=== PATIENT | female | born 1955 | race Two or more races ===

== ENCOUNTER 2018-07-10 06:58 | Day surgery (SDC) | payer OTHER ==
[2018-07-10] MEDS ORDERED: CIPROFLOXACIN 400MG/D5W 200 ML IVPB (08:00)
[2018-07-10] MEDS ORDERED: metroNIDAZOLE 500 MG/NS (PMX) 100 ML IVPB (08:00)
[2018-07-10] MEDS ORDERED: SOD CHLORIDE 0.9% 1,000 ML IV (08:00)
[2018-07-10 08:31] LABS: ADD MAN DIFF? NO
[2018-07-10 08:40] LABS: BASOPHILS % 0.2 % (0.0-2.0); EOSINOPHILS # 0.1 10^3/ul (0.0-0.5); EOSINOPHILS % 1.2 % (0.0-7.0); HEMATOCRIT 37.6 % (37.0-47.0); HEMOGLOBIN 12.4 g/dl (12.0-16.0); LYMPHOCYTES # 0.7 10^3/ul (0.8-2.9); LYMPHOCYTES % 17.1 % (15.0-51.0); MEAN CORPUSCULAR HEMOGLOBIN 30.1 pg (29.0-33.0); MEAN CORPUSCULAR VOLUME 91.3 fl (82.0-101.0); MEAN PLATELET VOLUME 11.1 fl (7.4-10.4); MONOCYTE # 0.4 10^3/ul (0.3-0.9); MONOCYTES % 8.7 % (0.0-11.0); NEUTROPHILS % 72.3 % (39.0-77.0); PLATELET COUNT 102 10^3/UL (140-415); RED BLOOD COUNT 4.12 10^6/ul (4.20-5.40); RED CELL DISTRIBUTION WIDTH 13.2 % (11.5-14.5)
[2018-07-10 08:40] LABS: WHITE BLOOD COUNT 4.2 10^3/ul (4.8-10.8)
[2018-07-10 08:54] LABS: HOLD TRANSMISSIONS 1
== END 2018-07-10 09:28 | disposition home or self-care (01) ==
LOC: REC 06:58 → SDS 06:58
DX: C18.9 Malignant neoplasm of colon, unspecified (principal); Z53.8 Procedure and treatment not carried out for other reasons
CPT/HCPCS: 85025; 86850; 86900; 86901

== ENCOUNTER 2018-07-15 07:10 | Inpatient (IN) | payer OTHER ==
[2018-07-17] MEDS: SOD CHLORIDE 0.9% 1,000 ML IV ×2 (06:00→19:20)
[2018-07-17] MEDS ORDERED: CIPROFLOXACIN 400 MG in D5W 200 ML IVPB (06:00)
[2018-07-17] MEDS: Metronidazole 500 MG in NS 100 ML IVPB (06:00)
[2018-07-17] MEDS ORDERED: ROCURONIUM 50 MG INJ (07:00)
[2018-07-17] MEDS ORDERED: EPHEDrine SULFATE 50 MG/5 ML SYG (07:00)
[2018-07-17] MEDS ORDERED: ETOMIDATE 20 MG INJ (07:00)
[2018-07-17 08:15] LABS: ADD MAN DIFF? NO
[2018-07-17 08:19] LABS: ABNORMAL IP MESSAGE 1; BASOPHILS % 0.2 % (0.0-2.0); EOSINOPHILS % 0.5 % (0.0-7.0); HEMATOCRIT 34.2 % (37.0-47.0); HEMOGLOBIN 11.3 g/dl (12.0-16.0); LYMPHOCYTES # 0.6 10^3/ul (0.8-2.9); LYMPHOCYTES % 9.4 % (15.0-51.0); MEAN CORPUSCULAR VOLUME 90.7 fl (82.0-101.0); MEAN PLATELET VOLUME 11.1 fl (7.4-10.4); MONOCYTE # 0.3 10^3/ul (0.3-0.9); MONOCYTES % 4.3 % (0.0-11.0); NEUTROPHIL # 5.3 10^3/ul (1.6-7.5); NEUTROPHILS % 85.4 % (39.0-77.0); PLATELET COUNT 114 10^3/UL (140-415); RED BLOOD COUNT 3.77 10^6/ul (4.20-5.40)
[2018-07-17 08:19] LABS: WHITE BLOOD COUNT 6.3 10^3/ul (4.8-10.8)
[2018-07-17 08:47] LABS: INR 0.94; PARTIAL THROMBOPLASTIN TIME 32.2 Sec (23.0-35.0); PROTIME 12.7 Sec (11.9-14.9)
[2018-07-17 08:53] LABS: POSITIVE DIFF @See below
[2018-07-17 08:56] LABS: ALANINE AMINOTRANSFERASE 29 IU/L (13-69); ALBUMIN 3.4 g/dl (3.3-4.9); ALBUMIN/GLOBULIN RATIO 1.13; ALKALINE PHOSPHATASE 84 IU/L (42-121); ANION GAP 11 (5-13); ASPARTATE AMINO TRANSFERASE 27 IU/L (15-46); BILIRUBIN,INDIRECT 0.5 mg/dl (0-1.1); BILIRUBIN,TOTAL 0.5 mg/dl (0.2-1.3); BLOOD UREA NITROGEN 18 mg/dl (7-20); CALCIUM 8.9 mg/dl (8.4-10.2); CARBON DIOXIDE 25 mmol/L (21-31); CHLORIDE 106 mmol/L (97-110); CREATININE 0.58 mg/dl (0.44-1.00); GLUCOSE 112 mg/dl (70-220); POTASSIUM 3.9 mmol/L (3.5-5.1); SODIUM 142 mmol/L (135-144); TOTAL PROTEIN 6.4 g/dl (6.1-8.1)
[2018-07-17 09:13] LABS: ANISOCYTOSIS 1+ (0-0); BAND NEUTROPHILS #M 0.8 10^3/ul (0.0-0.6); BAND NEUTROPHILS % (M) 13 % (0-4); LYMPHOCYTES #M 0.6 10^3/ul (0.8-2.9); LYMPHOCYTES % (M) 11 % (15-51); MICROCYTOSIS 1+ (0-0); MONOCYTE #M 0.1 10^3/ul (0.3-0.9); MONOCYTES % (M) 2 % (0-11); PLATELET ESTIMATE DECREASED; POIKILOCYTOSIS 1+ (0-0); REACTIVE LYMPHOCYTES% (M) 1 % (0-0); SEG NEUT #M 4.6 10^3/ul (1.6-7.5); SEGMENTED NEUTROPHILS (M) % 73 % (39-77); SMUDGE%M 1 % (0-0)
[2018-07-17] MEDS: DIPHENHYDRAMINE 50 MG INJ IV (09:19)
[2018-07-17] MEDS ORDERED: morphine SULFATE/PF (10 MG/10 ML) INJ (10:17)
[2018-07-17] MEDS ORDERED: MIDAZOLAM 1 MG/ML 2 ML INJ (10:17)
[2018-07-17 11:22] LABS: POST-TRANSFUSION BILIRUBIN 0.4 mg/dl
[2018-07-17 11:22] LABS: PRETRANSFUSION BILIRUBIN 0.4 mg/dl
[2018-07-17] MEDS ORDERED: LIDOCAINE 2% (SDV) 5 ML INJ (12:06)
[2018-07-17] MEDS ORDERED: PHENYLephrine (100 MCG/ML) 5ML SYG ×3 (12:32→13:16)
[2018-07-17] MEDS ORDERED: DEXAMETHASONE 4 MG/ML 1 ML INJ (13:02)
[2018-07-17] MEDS ORDERED: ONDANSETRON 4 MG INJ (13:02)
[2018-07-17 13:16] LABS: IMMEDIATE SPIN CROSSMATCH 1 4
[2018-07-17] MEDS ORDERED: SUGAMMADEX SODIUM 200 MG/2 ML VIAL IV (14:12)
[2018-07-17] MEDS ORDERED: morphine 1 MG/ML 30 ML (PCA) IV (14:30)
[2018-07-17] MEDS ORDERED: NALOXONE (0.4 MG/ML) INJ IV (15:00)
[2018-07-17] MEDS: ONDANSETRON 4 MG INJ IV (15:02)
[2018-07-17] MEDS ORDERED: METOCLOPRAMIDE 10 MG INJ (15:14)
[2018-07-17] MEDS: FENTAnyl 2MCG/ML-ROPIV 0.2% 100 ML BAG EPI ×2 (15:24→22:27)
[2018-07-17] MEDS: METOCLOPRAMIDE 10 MG INJ IV (18:00)
[2018-07-17] MEDS: D5W-0.45 NACL + KCL 20 MEQ 1,000 ML IV (18:00)
[2018-07-18] MEDS: D5W-0.45 NACL + KCL 20 MEQ 1,000 ML IV ×4 (02:15→21:24)
[2018-07-18 04:57] LABS: ADD MAN DIFF? NO
[2018-07-18 05:13] LABS: WHITE BLOOD COUNT 6.6 10^3/ul (4.8-10.8)
[2018-07-18 05:13] LABS: ABNORMAL IP MESSAGE 1; HEMATOCRIT 27.5 % (37.0-47.0); HEMOGLOBIN 9.2 g/dl (12.0-16.0); LYMPHOCYTES # 0.3 10^3/ul (0.8-2.9); LYMPHOCYTES % 4.5 % (15.0-51.0); MEAN CORPUSCULAR HEMOGLOBIN 29.7 pg (29.0-33.0); MEAN CORPUSCULAR HGB CONC 33.5 g/dl (32.0-37.0); MEAN CORPUSCULAR VOLUME 88.7 fl (82.0-101.0); MONOCYTE # 0.5 10^3/ul (0.3-0.9); MONOCYTES % 6.8 % (0.0-11.0); NEUTROPHIL # 5.9 10^3/ul (1.6-7.5); NEUTROPHILS % 88.5 % (39.0-77.0); PLATELET COUNT 156 10^3/UL (140-415); RED CELL DISTRIBUTION WIDTH 12.8 % (11.5-14.5)
[2018-07-18 05:21] LABS: MAGNESIUM 1.5 mg/dl (1.7-2.5)
[2018-07-18 05:21] LABS: PHOSPHORUS 2.5 mg/dl (2.5-4.9)
[2018-07-18 05:24] LABS: ANION GAP 9 (5-13); BLOOD UREA NITROGEN 13 mg/dl (7-20); CALCIUM 8.4 mg/dl (8.4-10.2); CARBON DIOXIDE 25 mmol/L (21-31); CHLORIDE 104 mmol/L (97-110); CREATININE 0.64 mg/dl (0.44-1.00); GLUCOSE 163 mg/dl (70-220); PHOSPHORUS 2.3 mg/dl (2.5-4.9); POTASSIUM 3.6 mmol/L (3.5-5.1); SODIUM 138 mmol/L (135-144)
[2018-07-18 05:25] LABS: MAGNESIUM 1.4 mg/dl (1.7-2.5)
[2018-07-18 05:32] LABS: POSITIVE DIFF @See below
[2018-07-18] MEDS: PANTOPRAZOLE 40 MG INJ IV (06:11)
[2018-07-18] MEDS: FENTAnyl 2MCG/ML-ROPIV 0.2% 100 ML BAG EPI ×2 (07:40→18:00)
[2018-07-18 10:40] LABS: ADD MAN DIFF? NO
[2018-07-18 10:42] LABS: BASOPHILS % 0.1 % (0.0-2.0); EOSINOPHILS % 0.1 % (0.0-7.0); HEMATOCRIT 32.5 % (37.0-47.0); HEMOGLOBIN 10.7 g/dl (12.0-16.0); LYMPHOCYTES # 0.7 10^3/ul (0.8-2.9); LYMPHOCYTES % 8.4 % (15.0-51.0); MEAN CORPUSCULAR HGB CONC 32.9 g/dl (32.0-37.0); MEAN PLATELET VOLUME 11.2 fl (7.4-10.4); MONOCYTE # 0.4 10^3/ul (0.3-0.9); MONOCYTES % 5.4 % (0.0-11.0); NEUTROPHIL # 6.8 10^3/ul (1.6-7.5); NEUTROPHILS % 85.9 % (39.0-77.0); RED BLOOD COUNT 3.57 10^6/ul (4.20-5.40); RED CELL DISTRIBUTION WIDTH 12.9 % (11.5-14.5)
[2018-07-18 10:42] LABS: WHITE BLOOD COUNT 7.9 10^3/ul (4.8-10.8)
[2018-07-18 10:43] LABS: PLATELET COUNT 119 10^3/UL (140-415)
[2018-07-18] MEDS: ACETAMINOPHEN 1000MG/100ML IV 100 ML IVPB (11:05)
[2018-07-18 11:07] LABS: INR 1.06; PARTIAL THROMBOPLASTIN TIME 20.5 Sec (23.0-35.0); PROTIME 13.9 Sec (11.9-14.9); PT RATIO 1.1
[2018-07-18] MEDS: MAGNESIUM SULFATE 2 GM/50 ML 50 ML IVPB (11:55)
[2018-07-18] MEDS: HYDROmorphONE 0.5 MG/0.5 ML SYG IV ×2 (13:01→23:57)
[2018-07-19] MEDS: FENTAnyl 2MCG/ML-ROPIV 0.2% 100 ML BAG EPI ×3 (03:41→20:26)
[2018-07-19 05:56] LABS: WHITE BLOOD COUNT 7.1 10^3/ul (4.8-10.8)
[2018-07-19 05:56] LABS: ADD MAN DIFF? NO; BASOPHILS % 0.3 % (0.0-2.0); EOSINOPHILS % 0.1 % (0.0-7.0); HEMATOCRIT 29.5 % (37.0-47.0); HEMOGLOBIN 9.7 g/dl (12.0-16.0); LYMPHOCYTES # 0.7 10^3/ul (0.8-2.9); LYMPHOCYTES % 10.3 % (15.0-51.0); MEAN CORPUSCULAR HEMOGLOBIN 30.1 pg (29.0-33.0); MEAN CORPUSCULAR HGB CONC 32.9 g/dl (32.0-37.0); MEAN CORPUSCULAR VOLUME 91.6 fl (82.0-101.0); MEAN PLATELET VOLUME 11.2 fl (7.4-10.4); MONOCYTE # 0.5 10^3/ul (0.3-0.9); MONOCYTES % 6.9 % (0.0-11.0); NEUTROPHIL # 5.8 10^3/ul (1.6-7.5); PLATELET COUNT 143 10^3/UL (140-415); RED BLOOD COUNT 3.22 10^6/ul (4.20-5.40); RED CELL DISTRIBUTION WIDTH 13.4 % (11.5-14.5)
[2018-07-19] MEDS: PANTOPRAZOLE 40 MG INJ IV (06:02)
[2018-07-19] MEDS: D5W-0.45 NACL + KCL 20 MEQ 1,000 ML IV ×2 (06:02→14:29)
[2018-07-19 06:32] LABS: ANION GAP 8 (5-13); BLOOD UREA NITROGEN 9 mg/dl (7-20); CALCIUM 8.1 mg/dl (8.4-10.2); CARBON DIOXIDE 22 mmol/L (21-31); CHLORIDE 108 mmol/L (97-110); CREATININE 0.58 mg/dl (0.44-1.00); Estimated GFR > 60 mL/min (>60); GLUCOSE 126 mg/dl (70-220); POTASSIUM 4.1 mmol/L (3.5-5.1); SODIUM 138 mmol/L (135-144)
[2018-07-19 06:42] LABS: PHOSPHORUS 2.5 mg/dl (2.5-4.9)
[2018-07-19] MEDS: INFLUENZA VIRUS VACCINE 0.5 ML (DISPENSING) IM* (15:00)
[2018-07-19] MEDS: ONDANSETRON 4 MG INJ IV (15:44)
[2018-07-19] MEDS: ACETAMINOPHEN 1000MG/100ML IV 100 ML IVPB (17:26)
[2018-07-19] MEDS: HYDROmorphONE 0.5 MG/0.5 ML SYG IV (18:43)
[2018-07-20] MEDS: D5W-0.45 NACL + KCL 20 MEQ 1,000 ML IV ×4 (00:40→21:07)
[2018-07-20] MEDS: FENTAnyl 2MCG/ML-ROPIV 0.2% 100 ML BAG EPI (03:42)
[2018-07-20] MEDS: PANTOPRAZOLE 40 MG INJ IV (05:14)
[2018-07-20] MEDS: ACETAMINOPHEN 1000MG/100ML IV 100 ML IVPB (05:53)
[2018-07-20] MEDS: ONDANSETRON 4 MG INJ IV (05:53)
[2018-07-20] MEDS: METOCLOPRAMIDE 10 MG INJ IV ×2 (11:00→19:57)
[2018-07-20 11:27] LABS: ADD MAN DIFF? NO
[2018-07-20 11:32] LABS: WHITE BLOOD COUNT 4.9 10^3/ul (4.8-10.8)
[2018-07-20 11:32] LABS: ABNORMAL IP MESSAGE 1; BASOPHILS % 0.2 % (0.0-2.0); EOSINOPHILS % 0.4 % (0.0-7.0); HEMATOCRIT 27.4 % (37.0-47.0); HEMOGLOBIN 8.8 g/dl (12.0-16.0); LYMPHOCYTES # 0.3 10^3/ul (0.8-2.9); LYMPHOCYTES % 6.7 % (15.0-51.0); MEAN CORPUSCULAR HGB CONC 32.1 g/dl (32.0-37.0); MEAN CORPUSCULAR VOLUME 93.5 fl (82.0-101.0); MEAN PLATELET VOLUME 11.2 fl (7.4-10.4); MONOCYTE # 0.2 10^3/ul (0.3-0.9); NEUTROPHIL # 4.4 10^3/ul (1.6-7.5); NEUTROPHILS % 89.3 % (39.0-77.0); PLATELET COUNT 133 10^3/UL (140-415); RED BLOOD COUNT 2.93 10^6/ul (4.20-5.40); RED CELL DISTRIBUTION WIDTH 13.4 % (11.5-14.5)
[2018-07-20 11:33] LABS: POSITIVE DIFF @See below
[2018-07-20 11:49] LABS: INR 1.04; PROTIME 13.7 Sec (11.9-14.9); PT RATIO 1.1
[2018-07-20 11:50] LABS: PARTIAL THROMBOPLASTIN TIME 31.1 Sec (23.0-35.0)
[2018-07-20 11:53] LABS: ANION GAP 6 (5-13); BLOOD UREA NITROGEN 13 mg/dl (7-20); CALCIUM 7.8 mg/dl (8.4-10.2); CARBON DIOXIDE 22 mmol/L (21-31); CHLORIDE 109 mmol/L (97-110); CREATININE 0.66 mg/dl (0.44-1.00); Estimated GFR > 60 mL/min (>60); GLUCOSE 147 mg/dl (70-220); MAGNESIUM 1.9 mg/dl (1.7-2.5); POTASSIUM 5.1 mmol/L (3.5-5.1); SODIUM 137 mmol/L (135-144)
[2018-07-20 15:42] LABS: ADD UMIC YES; UR ASCORBIC ACID NEGATIVE (NEGATIVE); UR BILIRUBIN (Dip) NEGATIVE (NEGATIVE); UR BLOOD (Dip) 1+ mg/dL (NEGATIVE); UR CLARITY SLIGHTLY CLOUDY (CLEAR); UR COLOR YELLOW (YELLOW); UR GLUCOSE (Dip) NEGATIVE (NEGATIVE); UR KETONES (Dip) 1+ mg/dL (NEGATIVE); UR LEUKOCYTE ESTERASE (Dip) NEGATIVE Leu/ul (NEGATIVE); UR MUCUS MODERATE /HPF (NONE SEEN); UR NITRITE (Dip) NEGATIVE (NEGATIVE); UR RBC 1 /HPF (0-5); UR SPECIFIC GRAVITY (Dip) 1.014 (1.003-1.030); UR TOTAL PROTEIN (Dip) NEGATIVE (NEGATIVE); UR UROBILINOGEN (Dip) NEGATIVE (NEGATIVE); UR WBC 2 /HPF (0-5)
[2018-07-20] MEDS: SOD CHLORIDE 0.9% 500 ML IV (17:00)
[2018-07-20] MEDS: LEVOFLOXACIN 500MG/D5W (PMX) 100 ML IVPB (18:13)
[2018-07-20] MEDS: HYDROmorphONE 0.5 MG/0.5 ML SYG IV ×2 (20:00→22:40)
[2018-07-20] MEDS ORDERED: SOD CHLORIDE 0.9% 0 ML (21:26)
[2018-07-20] MEDS ORDERED: IOHEXOL 0 ML (21:26)
[2018-07-21] MEDS: D5W-0.45 NACL + KCL 20 MEQ 1,000 ML IV ×2 (01:25→11:59)
[2018-07-21] MEDS: ACETAMINOPHEN 1000MG/100ML IV 100 ML IVPB ×3 (01:30→20:53)
[2018-07-21] MEDS: PANTOPRAZOLE 40 MG INJ IV (05:04)
[2018-07-21 05:42] LABS: ADD MAN DIFF? NO
[2018-07-21 05:50] LABS: WHITE BLOOD COUNT 5.9 10^3/ul (4.8-10.8)
[2018-07-21 05:50] LABS: BASOPHILS % 0.2 % (0.0-2.0); EOSINOPHILS % 0.5 % (0.0-7.0); HEMATOCRIT 28.8 % (37.0-47.0); HEMOGLOBIN 9.6 g/dl (12.0-16.0); LYMPHOCYTES # 0.6 10^3/ul (0.8-2.9); LYMPHOCYTES % 10.8 % (15.0-51.0); MEAN CORPUSCULAR HEMOGLOBIN 30.4 pg (29.0-33.0); MEAN CORPUSCULAR HGB CONC 33.3 g/dl (32.0-37.0); MEAN CORPUSCULAR VOLUME 91.1 fl (82.0-101.0); MEAN PLATELET VOLUME 11.1 fl (7.4-10.4); MONOCYTE # 0.4 10^3/ul (0.3-0.9); MONOCYTES % 7.3 % (0.0-11.0); NEUTROPHIL # 4.7 10^3/ul (1.6-7.5); NEUTROPHILS % 80.9 % (39.0-77.0); PLATELET COUNT 143 10^3/UL (140-415); RED BLOOD COUNT 3.16 10^6/ul (4.20-5.40); RED CELL DISTRIBUTION WIDTH 13.1 % (11.5-14.5)
[2018-07-21 06:09] LABS: PHOSPHORUS 2.6 mg/dl (2.5-4.9)
[2018-07-21 06:09] LABS: MAGNESIUM 1.9 mg/dl (1.7-2.5)
[2018-07-21 06:14] LABS: ALANINE AMINOTRANSFERASE 26 IU/L (13-69); ALBUMIN 3.2 g/dl (3.3-4.9); ALKALINE PHOSPHATASE 73 IU/L (42-121); ANION GAP 8 (5-13); ASPARTATE AMINO TRANSFERASE 24 IU/L (15-46); BILIRUBIN,INDIRECT 0.4 mg/dl (0-1.1); BILIRUBIN,TOTAL 0.4 mg/dl (0.2-1.3); BLOOD UREA NITROGEN 11 mg/dl (7-20); CALCIUM 8.4 mg/dl (8.4-10.2); CARBON DIOXIDE 24 mmol/L (21-31); CHLORIDE 107 mmol/L (97-110); CREATININE 0.54 mg/dl (0.44-1.00); Estimated GFR > 60 mL/min (>60); GLUCOSE 118 mg/dl (70-220); POTASSIUM 3.9 mmol/L (3.5-5.1); SODIUM 139 mmol/L (135-144); TOTAL PROTEIN 6.1 g/dl (6.1-8.1)
[2018-07-21] MEDS: HYDROmorphONE 0.5 MG/0.5 ML SYG IV (11:02)
[2018-07-21] MEDS: ONDANSETRON 4 MG INJ IV ×2 (11:02→21:01)
[2018-07-21] MEDS: LEVOFLOXACIN 500MG/D5W (PMX) 100 ML IVPB (18:43)
[2018-07-22] MEDS: D5W-0.45 NACL + KCL 20 MEQ 1,000 ML IV ×2 (03:16→20:04)
[2018-07-22] MEDS: PANTOPRAZOLE 40 MG INJ IV (05:19)
[2018-07-22 06:18] LABS: ADD MAN DIFF? NO
[2018-07-22 06:23] LABS: BASOPHILS % 0.2 % (0.0-2.0); EOSINOPHILS # 0.1 10^3/ul (0.0-0.5); EOSINOPHILS % 1.9 % (0.0-7.0); HEMATOCRIT 29.8 % (37.0-47.0); HEMOGLOBIN 9.8 g/dl (12.0-16.0); LYMPHOCYTES # 0.7 10^3/ul (0.8-2.9); MEAN CORPUSCULAR HEMOGLOBIN 29.9 pg (29.0-33.0); MEAN CORPUSCULAR HGB CONC 32.9 g/dl (32.0-37.0); MEAN CORPUSCULAR VOLUME 90.9 fl (82.0-101.0); MEAN PLATELET VOLUME 10.7 fl (7.4-10.4); MONOCYTE # 0.4 10^3/ul (0.3-0.9); MONOCYTES % 9.5 % (0.0-11.0); NEUTROPHIL # 2.9 10^3/ul (1.6-7.5); NEUTROPHILS % 71.2 % (39.0-77.0); PLATELET COUNT 143 10^3/UL (140-415); RED BLOOD COUNT 3.28 10^6/ul (4.20-5.40); RED CELL DISTRIBUTION WIDTH 12.4 % (11.5-14.5)
[2018-07-22 06:23] LABS: WHITE BLOOD COUNT 4.1 10^3/ul (4.8-10.8)
[2018-07-22 06:32] LABS: HEMOGLOBIN A1C 4.9 % (0-5.9)
[2018-07-22] MEDS: ACETAMINOPHEN 1000MG/100ML IV 100 ML IVPB (11:23)
[2018-07-22] MEDS: ACETAMINOPHEN 650 MG SUPP PR (14:23)
[2018-07-22] MEDS: LEVOFLOXACIN 500MG/D5W (PMX) 100 ML IVPB (17:44)
[2018-07-22] MEDS: DIPHENHYDRAMINE 50 MG INJ IV (20:04)
[2018-07-23] MEDS: PANTOPRAZOLE 40 MG INJ IV (05:39)
[2018-07-23] MEDS: D5W-0.45 NACL + KCL 20 MEQ 1,000 ML IV ×3 (05:39→15:05)
[2018-07-23 06:19] LABS: ADD MAN DIFF? NO
[2018-07-23 06:39] LABS: WHITE BLOOD COUNT 4.7 10^3/ul (4.8-10.8)
[2018-07-23 06:39] LABS: BASOPHILS % 0.4 % (0.0-2.0); EOSINOPHILS # 0.2 10^3/ul (0.0-0.5); EOSINOPHILS % 3.2 % (0.0-7.0); HEMATOCRIT 32.5 % (37.0-47.0); HEMOGLOBIN 10.6 g/dl (12.0-16.0); LYMPHOCYTES # 0.7 10^3/ul (0.8-2.9); LYMPHOCYTES % 15.2 % (15.0-51.0); MEAN CORPUSCULAR HEMOGLOBIN 29.9 pg (29.0-33.0); MEAN CORPUSCULAR HGB CONC 32.6 g/dl (32.0-37.0); MEAN CORPUSCULAR VOLUME 91.8 fl (82.0-101.0); MEAN PLATELET VOLUME 10.9 fl (7.4-10.4); MONOCYTE # 0.5 10^3/ul (0.3-0.9); MONOCYTES % 10.1 % (0.0-11.0); NEUTROPHIL # 3.3 10^3/ul (1.6-7.5); NEUTROPHILS % 70.7 % (39.0-77.0); PLATELET COUNT 142 10^3/UL (140-415); RED BLOOD COUNT 3.54 10^6/ul (4.20-5.40); RED CELL DISTRIBUTION WIDTH 12.5 % (11.5-14.5)
[2018-07-23] MEDS: LEVOFLOXACIN 500MG/D5W (PMX) 100 ML IVPB (17:11)
[2018-07-24] MEDS: D5W-0.45 NACL + KCL 20 MEQ 1,000 ML IV ×3 (01:18→09:54)
[2018-07-24 05:45] LABS: ADD MAN DIFF? NO
[2018-07-24 05:53] LABS: WHITE BLOOD COUNT 3.9 10^3/ul (4.8-10.8)
[2018-07-24 05:53] LABS: ABNORMAL IP MESSAGE 1; BASOPHILS % 0.3 % (0.0-2.0); EOSINOPHILS # 0.1 10^3/ul (0.0-0.5); EOSINOPHILS % 2.3 % (0.0-7.0); HEMATOCRIT 28.8 % (37.0-47.0); HEMOGLOBIN 9.5 g/dl (12.0-16.0); LYMPHOCYTES # 0.6 10^3/ul (0.8-2.9); LYMPHOCYTES % 14.2 % (15.0-51.0); MEAN CORPUSCULAR HEMOGLOBIN 30.1 pg (29.0-33.0); MEAN CORPUSCULAR VOLUME 91.1 fl (82.0-101.0); MEAN PLATELET VOLUME 10.9 fl (7.4-10.4); MONOCYTE # 0.4 10^3/ul (0.3-0.9); MONOCYTES % 10.7 % (0.0-11.0); NEUTROPHIL # 2.9 10^3/ul (1.6-7.5); NEUTROPHILS % 72.2 % (39.0-77.0); PLATELET COUNT 121 10^3/UL (140-415); RED BLOOD COUNT 3.16 10^6/ul (4.20-5.40); RED CELL DISTRIBUTION WIDTH 12.3 % (11.5-14.5)
[2018-07-24] MEDS: PANTOPRAZOLE 40 MG INJ IV (06:01)
[2018-07-24 06:12] LABS: POSITIVE DIFF @See below
[2018-07-24 06:13] LABS: PHOSPHORUS 3.5 mg/dl (2.5-4.9)
[2018-07-24 06:13] LABS: MAGNESIUM 1.8 mg/dl (1.7-2.5)
[2018-07-24 06:19] LABS: ANION GAP 5 (5-13); BLOOD UREA NITROGEN 7 mg/dl (7-20); CALCIUM 8.5 mg/dl (8.4-10.2); CARBON DIOXIDE 26 mmol/L (21-31); CHLORIDE 108 mmol/L (97-110); CREATININE 0.47 mg/dl (0.44-1.00); Estimated GFR > 60 mL/min (>60); GLUCOSE 120 mg/dl (70-220); POTASSIUM 3.9 mmol/L (3.5-5.1); SODIUM 139 mmol/L (135-144)
[2018-07-25] MEDS: PANTOPRAZOLE 40 MG INJ IV (06:30)
== END 2018-07-25 16:00 | disposition home or self-care (01) | DRG 331 ==
LOC: L-D 07:10 → REC 07-17 06:13 → 6WM 07-20 17:35 → MS1 07-17 16:15
PROC: 0DTF0ZZ Resection of Right Large Intestine, Open Approach (ICD-10-PCS; principal; 2018-07-17 10:30)
PROC: 30233R1 Transfusion of Nonautologous Platelets into Peripheral Vein, Percutaneous Approach (ICD-10-PCS; 2018-07-17 10:30)
DX: C18.4 Malignant neoplasm of transverse colon (principal); I10 Essential (primary) hypertension; I34.0 Nonrheumatic mitral (valve) insufficiency; M19.90 Unspecified osteoarthritis, unspecified site; D63.0 Anemia in neoplastic disease; D69.6 Thrombocytopenia, unspecified; E78.5 Hyperlipidemia, unspecified; E83.42 Hypomagnesemia; R33.9 Retention of urine, unspecified; R20.0 Anesthesia of skin; R51 Headache; Z90.710 Acquired absence of both cervix and uterus
CPT/HCPCS: 36430; 71045; 80048; 80053; 81001; 83036; 83735; 84100; 85025; 85610; 85730; 86078; 86644; 86850; 86900; 86901; 86920; 87086; 88307; 90686; 93005